=== PATIENT | female | born 1945 | race Caucasian/White ===

== ENCOUNTER 2021-04-08 16:51 | Emergency (ER) | payer MEDICARE, OTHER ==
[~2021-04-08] VITALS: Ht 160 cm; Wt 50.8 kg
[~2021-04-08 16:51] MED LIST: TOPAMAX50 MG
[2021-04-08] MEDS ORDERED: TRAMADOL HCL 50 MG TAB PO NR (17:09)
[2021-04-08] MEDS ORDERED: ULTRAM 50MG50 MG PO (18:28)
== END 2021-04-08 19:05 | disposition home or self-care (01) ==
LOC: ER 17:03
DX: S00.83XA Contusion of other part of head, initial encounter (principal); S39.82XA Other specified injuries of lower back, initial encounter; R51.9 Headache, unspecified; W01.0XXA Fall on same level from slipping, tripping and stumbling without subsequent striking against object, initial encounter; Y93.01 Activity, walking, marching and hiking; Y92.89 Other specified places as the place of occurrence of the external cause
CPT/HCPCS: 70450; 72220; 99283